=== PATIENT | female | born 1970 | race Caucasian/White ===

== ENCOUNTER 2022-02-01 06:36 | Day surgery (SDC) | payer BC ==
[2022-01-28 13:41] VITALS: BMI 30.1
[2022-02-01] MEDS ORDERED: PROPOFOL 20 ML ONE (10:30)
[2022-02-01] MEDS ORDERED: EPINEPHrine 1 MG/ML AMP ONE (10:30)
[2022-02-01] MEDS ORDERED: Ondansetron PF 4 MG/2 ML Vial ONE (10:31)
[2022-02-01] MEDS ORDERED: Lidocaine 1% (PF) 30 ML VIAL ONE (10:31)
[2022-02-01] MEDS ORDERED: CEFAZOLIN 1 GM VIAL ONE (10:31)
[2022-02-01] MEDS ORDERED: Rocuronium Bromide 10 MG/ML (10ML VIAL) ONE (10:31)
[2022-02-01] MEDS ORDERED: Lidocaine 1% PF 5 ML VIAL ONE (10:31)
[2022-02-01] MEDS ORDERED: Dexamethasone 4 mg/ml Vial ONE (10:31)
[2022-02-01] MEDS ORDERED: Glycopyrrolate 0.2 MG/ML 5 ML SYRINGE ONE (10:31)
[2022-02-01] MEDS ORDERED: Fentanyl 100 MCG/2 ML VIAL ONE (10:31)
[2022-02-01] MEDS ORDERED: Midazolam HCl 2 mg/2 ml Vial ONE (10:31)
[2022-02-01] MEDS ORDERED: PHENYLEPHRINE-NS 100 MCG/ML 10 ML SYRINGE ONE (10:57)
[2022-02-01] MEDS ORDERED: HYDROcodone/Acetaminophen 5/325 mg Tablet ONE (12:28)
== END 2022-02-01 13:20 | disposition home or self-care (01) ==
LOC: CSHSDC 06:36
PROVIDERS: ATTEND Otolaryngology Plastic Surgery within the Head & Neck
PROC: 0GBL0ZZ Excision of Right Superior Parathyroid Gland, Open Approach (ICD-10-PCS; principal; 2022-02-01)
DX: D35.1 Benign neoplasm of parathyroid gland (principal); E21.3 Hyperparathyroidism, unspecified; J32.9 Chronic sinusitis, unspecified; J34.3 Hypertrophy of nasal turbinates; J30.9 Allergic rhinitis, unspecified; G43.909 Migraine, unspecified, not intractable, without status migrainosus; I10 Essential (primary) hypertension; G47.30 Sleep apnea, unspecified; F41.9 Anxiety disorder, unspecified; F32.A Depression, unspecified; H26.9 Unspecified cataract; Z79.899 Other long term (current) drug therapy; Z90.49 Acquired absence of other specified parts of digestive tract
CPT/HCPCS: 36415; 83970; 88305; 88331; J0171; J0690; J1100; J2001; J2250; J2405; J2704; J3010